=== PATIENT | female | born 1960 | race African-American/Black ===

== ENCOUNTER 2017-03-26 20:42 | Inpatient (IN) | payer OTHER ==
[~2017-03-26] VITALS: Ht 157.5 cm; Wt 66.3 kg
[~2017-03-26 20:42] MED LIST: AMITIZA24 MC1 PO; BACO TOP; CLONIDINE HCL0.1 MG PO; COL100 PO; COLACE100 MG PO; DIL2 PO; DUL10S RC; DULCOLAX5 MG PO; ELA25 PO; FLONS; HIBICLENS118 ML TOP; LAC30L PO; LACTULOSE10 GM/152 PO; LOP50 PO; MEDDP PO; METOPROLOL TART25 M1 PO; MOVANTIK12.5 MG PO; NOR10 PO; NORCO1 TA2 PO; OXYCONTIN40 MG PO; PERCOCET1 TA1 PO; PERCOCET1 TA2 PO; PRI20 PO; SEN PO; ZES10 PO; ZOF4 PO
--- NOTE | 2017-03-26 21:35 | NUR ---
PT STATES HX OF SBO. STATES ABD PAIN ONSET 3 DAYS AGO. POINT TO RT UPPER QUADRANT AND LLQ FOR PAIN LOCATION. DENIES N/V/D. STATES PAIN SIMILAR TO WHEN SHE HAD SBO PRIOR. PT STATES SHE IS CURRENTLY ON PERCOCET ONLY FOR ABD PAIN. INFORMED PT THAT NARCOTIC ANALGESIA IS NOT NORMALLY USED TO TX SBO,AND OR PROFESSOR OF BIOLOGICAL SCIENCES TX OF ANYTHING. ELEVATED BP NOTED. PT DENIES HX OF HTN. STATES "I ONLY HAVE ELEVATED".
[2017-03-26 23:06] LABS: BASOPHIL % 0.4 % (0-2); PLATELET COUNT 333 x10^3mcL (130-400); RED CELL DISTRIBUTION WIDTH 14.2 % (11.5-14.5)
[2017-03-26 23:14] LABS: CALCIUM 9.4 mg/dL (8.5-10.1); CARBON DIOXIDE 27.2 mmol/L (21-32); CHLORIDE SERUM 105 mmol/L (98-107); CREATININE SERUM 0.9 mg/dL (0.6-1.0); GFR1 > 60 mL/min; GLUCOSE SERUM 100 mg/dL (74-106); POTASSIUM SERUM 3.2 mmol/L (3.5-5.1); SODIUM SERUM 142 mmol/L (136-145)
[2017-03-26 23:18] LABS: ALBUMIN 4.3 g/dL (3.4-5.0); ALKALINE PHOSPHATASE 92 U/L (46-116); ALT/SGPT 12 U/L (14-59); AST/SGOT 10 U/L (15-37); BILIRUBIN TOTAL 0.5 mg/dL (0.20-1.00); LIPASE 129 IU/L (73-393)
[2017-03-26 23:20] LABS: TOTAL PROTEIN, SERUM 8.3 g/dL (6.4-8.2)
--- NOTE | 2017-03-26 23:31 | NUR ---
PT MEDICATED PER MD ORDERS; PLEASE SEE EMAR. PT AWAKE AND ALERT, RESP EVEN AND UNLABORED. BEDSIDE RAILS UP FOR SAFTEY, NO DISTRESS NOTED
--- NOTE | 2017-03-26 23:40 | NUR ---
PT TO CT VIA GURKEIS[facility], NO DISTRESS NOTED
--- NOTE | 2017-03-27 01:30 | NUR ---
PENDING ADMIT. MEDS PER ORDER.
[2017-03-27] MEDS ORDERED: PERCOCET1 TA5 PO (01:34)
--- NOTE | 2017-03-27 01:45 | NUR ---
REPORT CALLED TO ADIA LOPEZ.
--- NOTE | 2017-03-27 01:51 | NUR ---
RECEIVED PT FROM ED. PT A/OX4. DENIES CHEST PAIN/PRESSURE. DENIES SOB ON RA. VSS. IV TO LHAND PATENT AND FLUSHING WELL. C/O 5/10 ABD PAIN TO RUQ AND LLQ. DILAUDID 1MG IVP TO BE GIVEN WHEN VERIFIED PER DR ROQUE FOR VAGINAL EXAM. ORIENTED TO ROOM AND SURROUNDINGS. CALL LIGHT WITHIN REACH, BED IN LOW POSITION. WILL CONTINUE TO MONITOR.
[2017-03-27 01:58] VITALS: BP 147/75
--- NOTE | 2017-03-27 03:01 | NUR ---
DR ROQUE AT BEDSIDE FOR VAGINAL AND RECTAL EXAM. PT C/O 03/05 PAIN. DILAUDID NOT DUE AT THIS TIME. PERCOCET TO BE GIVEN PER DR ROQUE. PT STABLE. CALL LIGHT WITHIN REACH, BED IN LOW POSITION. WILL CONTINUE TO MONITOR.
[2017-03-27 04:07] LABS: FREE T4 1.1 ng/dL (0.76-1.46); FREE THYROXINE INDEX 3.4 ug/dL (1.4-4.5); T4(THYROXINE) 9.1 ug/dL (4.7-13.3)
[2017-03-27 04:08] LABS: PHOSPHOROUS 3.4 mg/dL (2.5-4.9); T3 TOTAL 0.88 ng/mL
[2017-03-27 04:09] LABS: MAGNESIUM 2.1 mg/dL (1.8-2.4)
[2017-03-27 05:57] LABS: BASOPHIL % 0.2 % (0-2); PLATELET COUNT 296 x10^3mcL (130-400); RED CELL DISTRIBUTION WIDTH 14.1 % (11.5-14.5)
[2017-03-27 06:09] VITALS: BP 124/76
[2017-03-27 06:18] LABS: CALCIUM 8.6 mg/dL (8.5-10.1); CARBON DIOXIDE 30.6 mmol/L (21-32); CHLORIDE SERUM 109 mmol/L (98-107); CREATININE SERUM 0.8 mg/dL (0.6-1.0); GFR1 > 60 mL/min; GLUCOSE SERUM 115 mg/dL (74-106); HDL CHOLESTEROL 45 mg/dL (40-60); POTASSIUM SERUM 3.5 mmol/L (3.5-5.1); SODIUM SERUM 145 mmol/L (136-145); TRIGLYCERIDES 57 mg/dL (<150)
--- NOTE | 2017-03-27 06:19 | NUR ---
PT RESTING AT THIS TIME IN NO ACUTE DISTRESS. RR EVEN AND UNLABORED. IV PATENT. CALL LIGHT WITHIN REACH, BED IN LOW POSITION. WILL CONTINUE TO MONITOR.
[2017-03-27 06:23] LABS: CHOLESTEROL 134 mg/dL (<200)
--- NOTE | 2017-03-27 07:05 | NUR ---
AAOX4 ABLE TO VERBALIZE NEEDS WITH CLEAR AND COHERENT SPEECH, REPORTS ABD PAIN 5/10, TOLERABLE AT THIS LEVEL, WAS RECENTLY MEDICATED BY NIGHT RN, ACTIVE BOWEL SOUNDS X4 QUADS, ABD SOFT, NONDISTENDED, TENDER TO TOUCH, DENIES N&V, ON TELE #26 NSR ON MONITOR, DENIES HEART RELATED PAIN OR DISCOMFORT, IV AT L/HAND INFUSING NS AT 100ML/HR, CALL LIGHT WITHIN REACH, WILL CONTINUE TO PROVIDE CARE.
[2017-03-27 09:30] VITALS: BP 141/90
--- NOTE | 2017-03-27 09:33 | NUR ---
ABLE TO TAKE ALL PO MEDS WITHOUT GI DISTRESS, ASSISTED TO POSITION OF COMFORT, CALL LIGHT WITHIN REACH, WILL CONTINUE TO PROVIDE CARE.
--- NOTE | 2017-03-27 09:34 | NUR ---
ROUNDS WITH DR BUCHANAN AND MEDICAL TEAM, UPDATED PT ON CURRENT POC.
--- NOTE | 2017-03-27 09:44 | NUR ---
C/O NAUSEA, ANTIEMETIC ADMINISTERED, WILL CONTINUE TO MONITOR CLOSELY FOR ADEQUATE PAIN CONTROL, SAFETY AND COMFORT, CALL LIGHT WITHIN REACH.
--- NOTE | 2017-03-27 12:30 | NUR ---
C/O ABD PAIN 01/03, REQUESTING PAIN MED, C/O ITCHY SKIN AT DANN INNER THIGHS, APPLIED ICE PACK, PT REPORTED EPISODE OF VOMIT W/SMALL ABOUNT OF EMESIS, ANTIEMETIC ADMINISTERED ORDERED, PT REPORTS EFFECTIVE RELIEF OF NAUSEA, CALL LIGHT WITHIN REACH, WILL CONTINUE TO PROVIDE CARE.
--- NOTE | 2017-03-27 12:36 | NUR ---
DR BETANCOURT AT BEDSIDE TO EVALUATE.
--- NOTE | 2017-03-27 12:56 | NUR ---
NEW IV 20G AT LFA, FLUSHING WITH GOOD BLOOD RETURN, PT TOLERATED WITHOUT DISTRESS.
[2017-03-27 13:31] VITALS: BP 135/94
--- NOTE | 2017-03-27 17:12 | NUR ---
PT TAKEN DOWNSTAIRS FOR ABD CT W/CONTRAST
[2017-03-27 18:21] VITALS: BP 148/90
--- NOTE | 2017-03-27 18:39 | NUR ---
PT SITTING UP IN BED, REPORTS ABD PAIN 2/10, TOLERABLE AT THIS LEVEL, DR MURCIA ORDERED HIDA SCAN, PT IS NOT TO HAVE ANY OPIATES 4HRS PRIOR TO EXAM, PT HAD X1 VOMIT EPISODE, AWAITING RESULTS FROM CT-ABD W/CONTRAST, NO OTHER SIGNIFICANT CHANGES NOTED, CARE WILL BE ENDORSED TO NIGHT NURSE.
--- NOTE | 2017-03-27 19:30 | NUR ---
PT IS A/O x4. NO COMAPLIN OF CHEST PAIN OR PRESSURE. TELE #26, NSR. NO EDEMA NOTED. PEDIAL PULSES PRESENT. LUNGS CLEAR BILATERAL. NO SIGNS OF RESP. DISTRESS. BOWEL SOUNDS PRESENT x4. ABD TENDERNESS ON RUQ AND LLQ, PT REQUESTED PAIN MEDICATION WITH NOC MED. WILL CARRY OUT PT. PLAN OF PAIN MANAGMENT. SKIN IS WARM AND INTACT. IV ON L HAND INTACT WITH NO SIGNS OF INFILTRATION, NS RUNNING PER MD ORDER. SALINE LOCK ON LFA, SITE INTACT AND CLEAN. ALL ADLS MET. BED IN LOWEST SETTING. WILL CONTINUE TO [facility].
[2017-03-27 21:13] VITALS: BP 132/86
--- NOTE | 2017-03-27 22:08 | NUR ---
MADE AWARE OF CT-ABD & PELVIS WITH CONTRAST RESULTS. DOCTOR CARMEN WAS MADE AWARE, AND STATED THAT AM STAFF NOTIFIED DR. HAINES WHO THEN SPOKE WITH DR. BETANCOURT AND MADE HIM AWARE OF THE RESULTS. NO NEW OREDERS WERE GIVEN. WILL CONTINUE TO MONITOR PT.
[2017-03-28] VITALS (11 sets, daily range): BP systolic 140–212; BP diastolic 82–139; Ht 157.5 cm; Wt 66.3 kg
--- NOTE | 2017-03-28 05:02 | NUR ---
PT IS SLEEPING IN BED. NO SIGNS OF ANY DISTRESS NOTED. IV IS PATNENT AND INFUSING, NO SIGN OF INFILTRATION NOTED. BED IN LOWEST SETTING. REMOVED NPO SIGN AND ADVANCED DIET TO FULL LIQUIDS PER MD ORDER. CALL LIGHT WITHIN REACH. WILL CONTINUE TO MONITOR.
[2017-03-28 06:26] LABS: BASOPHIL % 0.8 % (0-2); PLATELET COUNT 251 x10^3mcL (130-400); RED CELL DISTRIBUTION WIDTH 13.8 % (11.5-14.5)
[2017-03-28 06:36] LABS: CALCIUM 8.4 mg/dL (8.5-10.1); CARBON DIOXIDE 27.1 mmol/L (21-32); CHLORIDE SERUM 108 mmol/L (98-107); CREATININE SERUM 0.8 mg/dL (0.6-1.0); GFR1 > 60 mL/min; GLUCOSE SERUM 91 mg/dL (74-106); MAGNESIUM 1.7 mg/dL (1.8-2.4); PHOSPHOROUS 3.7 mg/dL (2.5-4.9); POTASSIUM SERUM 3.4 mmol/L (3.5-5.1); SODIUM SERUM 142 mmol/L (136-145)
[2017-03-28 06:52] LABS: microscopic required? NO
[2017-03-28 07:21] LABS: urine erythrocyte NEGATIVE (NEGATIVE)
[2017-03-28 07:37] LABS: AMPHETAMINE QUAL UR NONE DETECTED (NEG <=1000)
--- NOTE | 2017-03-28 07:46 | NUR ---
RESTING IN BED, REPORTS ABD PAIN 2/10, CONTROLLED AT THIS LEVEL, ACTIVE BOWEL SOUNDS X4 QUADS, ABD SOFT, TENDER TO TOUCH, DENIES N&V, IV AT L/HAND AND LFA INFUSING NS AT 100ML/HR, ON TELE #26 NSR ON MONITOR DENIES HEART RELATED PAIN OR DISCOMFORT, CALL LIGHT WITHIN REACH, WILL CONTINUE TO PROVIDE CARE.
--- NOTE | 2017-03-28 09:42 | NUR ---
C/O ABD PAIN 12/03, PT IS AWARE SHE IS NOT ABLE TO HAVE ANY NARCOTICS FOR AT LEAST 4 HRS PRIOR TO HIDA SCAN, PT DOES NOT WANT TO TAKE ANY MEDICATIONS UNTIL SHE HAS THE HIDA SCAN, REFUSED PAIN MED TORADOL ALSO, RISKS AND BENEFITS EXPLAINED, PT VERBALIZED UNDERSTANDING, CALL LIGHT WITHIN REACH.
--- NOTE | 2017-03-28 10:43 | NUR ---
PATIENT GOING DOWNSTAIRS TO [facility] FOR HIDA SCAN, VIA WHEELCHAIR.
--- NOTE | 2017-03-28 12:45 | NUR ---
C/O ABD PAIN 12/03, REQUESTING DILAUDID, DOSE TO BE GIVEN ORDERED, CALL LIGHT WITHIN REACH.
--- NOTE | 2017-03-28 12:46 | NUR ---
HIDA SCAN COMPLETED.
--- NOTE | 2017-03-28 15:23 | NUR ---
C/O ABD PAIN 02/03, ASSISTED TO POSITION OF COMFORT, OFFERED WARM COMPRESS, DECLINED, REQUESTING PAIN MED, PO DOSE OF DILAUDID GIVEN. TUBE SORTER REPORTS BP 161/100, UPON ASSESSMENT, PT DENIES SPRINGER, DIZZINESS, OR VISUAL CHANGES, PT DENIES ANY HX OF HTN OR TAKING BP MEDS, UPON RECHECK OF BP-178/120 WITH MANUAL BP MACHINE, DR HAINES AT BEDSIDE TO ASSESS PT, WILL F/U WITH NEW OR CHANGED ORDERS.
--- NOTE | 2017-03-28 17:39 | NUR ---
171: C/O SOB, STUFFY NOSE, PLACED ON OXYGEN 3L VIA NC, APPEARS TEARY-EYE, STATES "I THINK THAT BLOOD PRESSURE MEDICATION I GOT IS MAKING ME NOT ABLE TO BREATH" O2 SAT 100% ON ROOM AIR AND ON OXYGEN 3L VIA NC, DR HAINES AT BEDSIDE TO ASSESS PT, TELE MONITOR STRIPS PRINTED, RHYTHM IS SINUS TAC W/ HR 103, PT DENIES PALPITATIONS, PRESSURE OR DISCOMFORT, ASSISTED TO POSITION OF COMFORT, CONTINUES TO C/O ABD PAIN 09/03, WILL F/U WITH NEW OR CHANGED ORDERS.
--- NOTE | 2017-03-28 18:25 | NUR ---
DR MURCIA AT BEDSIDE TO EVAL PT, WILL F/U WITH NEW OR CHANGED ORDERS.
--- NOTE | 2017-03-28 19:05 | NUR ---
DOSE OF LABETALOL ADMINISTERED ORDERED, TELE STRIP PRE AND POST IN CHART, PT DENIES HEART RELATED PAIN, PRESSURE, OR DISCOMFORT, CALL LIGHT WITHIN REACH, WILL CONTINUE TO PROVIDE CARE.
--- NOTE | 2017-03-28 20:00 | NUR ---
RECIEVED PT APPARENTLY VERY ANXIOUS AND RESTLESS M/B CRYING OUT LOUD, VERBALIZING WANTS DILAUDID IV FOR PAIN, DR LOPEZ MADE AWARE AND WILL EVALUATE PATIENT. RESPIRATIONE TANGELA AND UNLABORED. NO S/S OF ACUTE DISTERESS. WILL CONTINUE TO MONIOTR.
--- NOTE | 2017-03-28 20:10 | NUR ---
NITROGLYCERINE 0.4MG SL FOR BP 185/119. WILL CONTINUE TO MONITOR.
--- NOTE | 2017-03-28 20:20 | NUR ---
PT CONTINUES TO REPORT LLQ PAIN, CHRONIC BACK PAIN, SPRINGER, AND GENERALIZED PAIN THROUGHOUT HER BODY, PAIN MEDS GIVEN ORDERED, DENIES DIZZINESS, DR HAINES IS AWARE OF CURRENT BLOOD PRESSURE, NO OTHER SIGNIFICANT CHANGES NOTED, CARE ENDORSED TO NIGHT NURSE
--- NOTE | 2017-03-28 21:35 | NUR ---
ATIVAN 1MG IVP GIVEN FOR SEVERE ANXIETY AND RESTLESSNESS. DILAUDID 2MG PO FOR BACK/SHOULDER PAIN . PLACED CALL LIGHT WITHIN REACH, INSTRUCTED TO CALL FOR ANY ASSISTANCE NEEDED AND VERBALIZED UNDERSTANDING.
--- NOTE | 2017-03-28 22:30 | NUR ---
TRIED TO CHECK BP, PT BADLY REFUSED, WILL TRY TO CHECK LATER.
[2017-03-29 00:01] VITALS: BP 161/85
--- NOTE | 2017-03-29 00:10 | NUR ---
VS TAKEN ZD=[id number], PT APPARENTLY CALM AT THIS TIME. WILL CONTINUE TO MONITOR.
[2017-03-29 04:52] VITALS: BP 148/99
[2017-03-29 06:17] LABS: CALCIUM 9.3 mg/dL (8.5-10.1); CARBON DIOXIDE 26.2 mmol/L (21-32); CHLORIDE SERUM 101 mmol/L (98-107); CREATININE SERUM 0.7 mg/dL (0.6-1.0); GFR1 > 60 mL/min; GLUCOSE SERUM 88 mg/dL (74-106); MAGNESIUM 2.2 mg/dL (1.8-2.4); PHOSPHOROUS 4.2 mg/dL (2.5-4.9); POTASSIUM SERUM 3.2 mmol/L (3.5-5.1); SODIUM SERUM 139 mmol/L (136-145)
[2017-03-29 06:27] LABS: IRON 60 ug/dL (50-170); TOTAL IRON BINDING CAPACITY 270 ug/dL (250-450)
--- NOTE | 2017-03-29 06:49 | NUR ---
APARENTLY COMFORTABLE AT THIS TIME. NO S/S OF ACUTE DISTRESS. REFUSED IVF , EXPLAINED THE BENEFITS BUT NO AVAIL. ALL NEEDS ATTENDED.
[2017-03-29 06:52] LABS: BASOPHIL % 0.4 % (0-2); PLATELET COUNT 327 x10^3mcL (130-400); RED BLOOD CELLS 3.93 M/mm3 (4.10-5.10); RED CELL DISTRIBUTION WIDTH 13.8 % (11.5-14.5)
--- NOTE | 2017-03-29 07:45 | NUR ---
PT. AWAKE,ALERT AND ORIENTED. DENIES ANY PAIN AT THIS TIME. CALL LIGHT W/ IN REACH. REFUSED IV FLUIDS AMBULATED IN THE BATHROOM AND VOIDING WELL.NO ACUTE DISTRESS NOTED.
--- NOTE | 2017-03-29 08:05 | NUR ---
Pt REFUSED HHN TX AT THIS TIME. KNOWS TO CALL RESP IF SOB.
--- NOTE | 2017-03-29 08:45 | NUR ---
DR. DÍAZ HERE MADE ROUNDS W/ OTHER MEDICAL STAFF AND UPDATED PT. PLAN OF CARE PT. IS GOING HOME TODAY PT. MADE AWARE.
[2017-03-29] MEDS ORDERED: ELA10 PO (09:08)
[2017-03-29] MEDS ORDERED: LISINOPRIL10 MG PO (09:09)
--- NOTE | 2017-03-29 09:20 | NUR ---
DR. HAINES HERE SEEN PT. W/ NEW ORDERS MADE OK PT. TO GO HOME PT. AWARE AWAITING FOR RIDE.
[2017-03-29 09:25] VITALS: BP 148/99
--- NOTE | 2017-03-29 09:45 | NUR ---
PT. WENT HOME W/ STABLE CONDITON AMBULATORY ACC. W/ HER DAUGHTER DISCHARGED INSTRUCTIONS AND PRESCRIPTION GIVEN AND DISCUSSED TO PT. AND VERBALIZED UNDERSTANDING OF INSTRUCTIONS GIVEN NO ACUTE DISTRESS NOTED. ESCORTED BY UMESH IN THE LOBBY.
[2017-03-30 07:18] LABS: TRANSFERRIN 228 mg/dL (200-370)
== END 2017-03-29 09:49 | disposition home or self-care (01) | DRG 392 ==
LOC: ED 20:42 → DU 03-27 00:55
PROVIDERS: Emergency Medicine; ADMIT Family Medicine
DX: K58.9 Irritable bowel syndrome, unspecified (principal); K80.20 Calculus of gallbladder without cholecystitis without obstruction; I16.0 Hypertensive urgency; E87.6 Hypokalemia; Z68.26 Body mass index [BMI] 26.0-26.9, adult; Z85.030 Personal history of malignant carcinoid tumor of large intestine; Z88.5 Allergy status to narcotic agent; Z88.0 Allergy status to penicillin; G89.4 Chronic pain syndrome; Z83.3 Family history of diabetes mellitus; Z82.49 Family history of ischemic heart disease and other diseases of the circulatory system; D64.9 Anemia, unspecified; E83.42 Hypomagnesemia; E02 Subclinical iodine-deficiency hypothyroidism
CPT/HCPCS: 78226; 83880; 84439; 94150; A9537; J0360; J1170; J1200; J1885; J2060; J2405; J3475; J3490; J7030; J7620; Q0092; Q0163; Q9966; Q9967

== ENCOUNTER 2017-08-02 07:43 | Inpatient (IN) | payer OTHER ==
[~2017-08-02] VITALS: Ht 157.5 cm; Wt 69.4 kg
[~2017-08-02 07:43] MED LIST changes: +ELA10 PO; +LISINOPRIL10 MG PO; +PERCOCET1 TA5 PO
[2017-08-02 08:05] VITALS: Ht 157.5 cm; Wt 69.4 kg
[2017-08-02 09:18] LABS: BASOPHIL % 0.1 % (0-2); PLATELET COUNT 335 x10^3mcL (130-400); RED CELL DISTRIBUTION WIDTH 13.3 % (11.5-14.5)
[2017-08-02 09:51] LABS: CALCIUM 9.5 mg/dL (8.5-10.1); CARBON DIOXIDE 23.9 mmol/L (21-32); CHLORIDE SERUM 102 mmol/L (98-107); CREATININE SERUM 0.8 mg/dL (0.6-1.0); GFR1 > 60 mL/min; GLUCOSE SERUM 119 mg/dL (74-106); POTASSIUM SERUM 3.3 mmol/L (3.5-5.1); SODIUM SERUM 138 mmol/L (136-145)
[2017-08-02 09:55] LABS: ALBUMIN 4.7 g/dL (3.4-5.0); ALKALINE PHOSPHATASE 96 U/L (46-116); ALT/SGPT 16 U/L (14-59); AMYLASE 59 U/L (25-115); AST/SGOT 14 U/L (15-37); BILIRUBIN TOTAL 0.54 mg/dL (0.20-1.00); LIPASE 53 IU/L (73-393)
[2017-08-02 09:56] LABS: TOTAL PROTEIN, SERUM 8.5 g/dL (6.4-8.2)
[2017-08-02 10:26] LABS: AMPHETAMINE QUAL UR NONE DETECTED (NEG <=1000)
[2017-08-02 12:48] LABS: UA SPECIFIC GRAVITY 1.015 (1.005-1.035); microscopic required? YES; urine erythrocyte TRACE (NEGATIVE)
[2017-08-02 12:56] LABS: MAGNESIUM 2.2 mg/dL (1.8-2.4)
[2017-08-02 13:03] LABS: CHOLESTEROL/HDL RATIO 2.4
[2017-08-02 13:04] LABS: T3 TOTAL 0.81 ng/mL
[2017-08-02 13:07] LABS: FREE T4 0.99 ng/dL (0.76-1.46); FREE THYROXINE INDEX 2.1 ug/dL (1.4-4.5); T4(THYROXINE) 6.4 ug/dL (4.7-13.3)
[2017-08-02 14:14] VITALS: BP 203/149
[2017-08-02 16:31] VITALS: BP 189/89
== END 2017-08-02 17:00 | disposition left against medical advice (07) | DRG 445 ==
LOC: ED 07:43 → DU 11:51
PROVIDERS: Emergency Medicine; Family Medicine
DX: K80.20 Calculus of gallbladder without cholecystitis without obstruction (principal); I24.9 Acute ischemic heart disease, unspecified; E87.6 Hypokalemia; I16.0 Hypertensive urgency; K21.9 Gastro-esophageal reflux disease without esophagitis; M94.0 Chondrocostal junction syndrome [Tietze]; Z88.0 Allergy status to penicillin; Z88.5 Allergy status to narcotic agent; Z90.49 Acquired absence of other specified parts of digestive tract; Z90.710 Acquired absence of both cervix and uterus; Z82.49 Family history of ischemic heart disease and other diseases of the circulatory system; Z83.3 Family history of diabetes mellitus
CPT/HCPCS: 83880; 84439; J0360; J1885; J2060; J2550; J3010; J7030